=== PATIENT | female | born 1965 | race Caucasian/White ===

== ENCOUNTER 2022-01-23 14:17 | Outpatient (REF) | payer OTHER, SELFPAY | END 2022-01-23 14:18 | disposition home or self-care (01) | LOC: HO.MDS 14:17 | PROVIDERS: Visit Provider Psychiatry & Neurology Neurology | DX: G37.9 Demyelinating disease of central nervous system, unspecified (principal); Q79.60 Ehlers-Danlos syndrome, unspecified | CPT/HCPCS: 96365; J2930 ==

== ENCOUNTER 2022-01-24 14:16 | Outpatient (REF) | payer OTHER, SELFPAY | END 2022-01-24 14:17 | disposition home or self-care (01) | LOC: HO.MDS 14:16 | PROVIDERS: Visit Provider Psychiatry & Neurology Neurology | DX: G37.9 Demyelinating disease of central nervous system, unspecified (principal); G35 Multiple sclerosis; Q79.60 Ehlers-Danlos syndrome, unspecified | CPT/HCPCS: 96365; J2930 ==

== ENCOUNTER 2022-01-25 14:19 | Outpatient (REF) | payer OTHER, SELFPAY ==
[2022-01-25 16:06] LABS: Baso%MD 0.1 %; Hematocrit 38.8 % (37.0-47.0); Hemoglobin 12.7 g/dl (12.0-16.0); IG%MD 0.5 %; Lymph%MD 16.3 %; Mean Corpuscular HGB Conc 32.7 g/dl (31.0-35.0); Mean Corpuscular Hemoglobin 26.8 pg (27.0-33.0); Mean Platelet Volume 9.3 fL (9.4-12.3); Mono%MD 4.8 %; Neut%MD 78.3 %; Platelet Count 376 X10*3/uL (160-400); Red Blood Count 4.73 X10*6/uL (4.20-5.50); Red Cell Distribution Width 13.5 % (11.0-16.0); White Blood Count 18.5 X10*3/uL (4.8-10.8)
[2022-01-25 16:35] LABS: Alanine Aminotransferase 21 U/L (0-31); Albumin Level 4.4 g/dL (3.5-5.0); Alkaline Phosphatase 65 U/L (39-117); Anion Gap 14 (12-20); Aspartate Amino Transferase 36 U/L (5-31); Bilirubin Direct 0.3 mg/dL (0.0-0.5); Bilirubin Total 0.7 mg/dL (0.0-1.0); Blood Urea Nitrogen 16 mg/dL (9-16); Calcium 9.7 mg/dL (8.4-10.2); Carbon Dioxide 28 mmol/L (22-29); Chloride 102 mmol/L (96-108); Estimated Glomerular Filt Rate > 60; Glucose Random 104 mg/dL (60-115); Potassium 4.2 mmol/L (3.3-5.1); Rheumatoid Factor < 15.0 IU/mL (<15.0); Sodium 140 mmol/L (135-145); Total Protein 7.5 g/dL (6.5-8.0)
[2022-01-25 16:54] LABS: Erythrocyte Sedimentation Rate 12 MM/HR (0-20)
[2022-01-25 17:06] LABS: Syphilis Screen Nonreactive (Nonreactive)
[2022-01-25 19:01] LABS: Lymphocytes Absolute Manual 1.5 X10*3/uL (1.2-4.9); Lymphocytes Percent Manual 8 % (20-40); Monocytes Absolute Manual 1.3 X10*3/uL (0.1-1.2); Monocytes Percent Manual 7 % (2-11); Neutrophils Percent Manual 85 % (45-73); RBC Morphology NOTED
[2022-01-25 19:02] LABS: Acanthocytes 2+ (3-5) /OIF; Platelet Estimate NORMAL (NORMAL); Platelet Morphology Comment NORMAL
[2022-01-25 19:03] LABS: Neutrophils Absolute Manual 15.7 X10*3/uL (2.0-8.3)
[2022-01-26 22:12] LABS: Lyme Abs Screen <0.90 index
[2022-01-27 08:22] LABS: Myeloperoxidase Antibody <1.0 AI; Proteinase 3 PR3 Antibodies <1.0 AI
[2022-01-29 08:22] LABS: Anti Nuclear Antibody Screen NEGATIVE (NEGATIVE)
== END 2022-01-25 14:20 | disposition home or self-care (01) ==
LOC: HO.MDS 14:19
PROVIDERS: PCP Internal Medicine Hematology & Oncology; Visit Provider Psychiatry & Neurology Neurology
DX: G37.9 Demyelinating disease of central nervous system, unspecified (principal); Q79.60 Ehlers-Danlos syndrome, unspecified
CPT/HCPCS: 36415; 80048; 80076; 85007; 85027; 85652; 86021; 86038; 86039; 86431; 86617; 86618; 86780; 96365; J2930

== ENCOUNTER 2022-02-01 15:48 | Outpatient (REF) | payer OTHER, SELFPAY ==
--- NOTE | ~2022-02-01 | MR_ITS ---
EXAMINATION: MR CERVICAL AND THORACIC SPINE WITHOUT AND WITH CONTRAST CLINICAL INFORMATION: MS changes in the brain. COMPARISON: None TECHNIQUE: Multiplanar multisequence MRI of the cervical and thoracic spine was performed without and with contrast. A total of 6.5 mL Gadavist was intravenously administered. FINDINGS: Cervical spine: The cervical vertebral bodies maintain normal heights and alignment. There is mild to moderate multilevel intervertebral disc height loss. No bone marrow edema is seen. The cervical cord signal appears normal. No abnormal enhancement is seen within the spinal canal. The imaged portions of the intracranial contents and extraspinal soft tissues appear normal. C2-C3: No spinal canal or neural foraminal stenosis. C3-C4: Mild disc bulging. No spinal canal or neural foraminal stenosis. C4-C5: Mild disc bulging with right uncovertebral hypertrophy. No spinal canal stenosis. Mild right neural foraminal stenosis. C5-C6: Disc osteophyte complex with uncovertebral hypertrophy resulting in severe bilateral neural foraminal stenosis and mild spinal canal stenosis. C6-C7: Disc bulging with uncovertebral hypertrophy resulting in mild bile canal stenosis and mild to moderate bilateral neural foraminal stenosis. C7-T1: Disc bulging with uncovertebral hypertrophy. Mild left neural foraminal stenosis. Thoracic spine: The thoracic vertebral bodies maintain normal heights and alignment. The disc heights are preserved. No bone marrow edema is seen. The thoracic cord signal appears normal. There is no focal disc herniation. The spinal canal and neural foramina are patent without significant narrowing. The extraspinal soft tissues appear normal. MR/MR cervical spine wo/w con IMPRESSION: CERVICAL SPINE: No cord signal abnormality or abnormal enhancement. No significant narrowing of the spinal canal. Neural foraminal stenosis appears severe bilaterally at C5-C6 and less advanced at other levels. THORACIC SPINE: No cord signal abnormality or abnormal enhancement. No spinal canal or neural foraminal stenosis.
== END 2022-02-01 15:49 | disposition home or self-care (01) ==
LOC: HO.MRI 15:48
PROVIDERS: Visit Provider Psychiatry & Neurology Neurology
DX: G37.9 Demyelinating disease of central nervous system, unspecified (principal); G82.20 Paraplegia, unspecified
CPT/HCPCS: 72156; 72157; A9585

== ENCOUNTER 2022-07-07 23:07 | Emergency (ER) | payer OTHER, SELFPAY ==
[2022-07-07 23:27] VITALS: BP 107/45; PULSE 73; RESP 16; TEMP 36.4; O2SAT 97; BMI 25.6
--- NOTE | 2022-07-08 00:04 | ECG_ITS ---
Test Reason : CHEST PAIN Blood Pressure : / mmHG Vent. Rate : 067 BPM Atrial Rate : 067 BPM P-R Int : 168 ms QRS Dur : 078 ms QT Int : 404 ms P-R-T Axes : 064 019 028 degrees QTc Int : 426 ms Normal sinus rhythm Normal ECG When compared with ECG of 18-JUL-2019 15:25, No significant change was found Referred By: Generic ED Physician Electronically Signed By:Macario Villasneor
[2022-07-08 00:19] LABS: Basophils Percent Auto 0.4 % (0-2); Eosinophils Absolute Auto 0.2 X10*3/uL (0.0-0.4); Eosinophils Percent Auto 1.9 % (0-4); Hematocrit 37.1 % (37.0-47.0); Hemoglobin 12.2 g/dl (12.0-16.0); Imm Gran Abs Auto 0.02 X10*3/uL (0.00-0.03); Imm Gran Pct Auto 0.3 % (0.0-0.4); Lymphocytes Absolute Auto 3.4 X10*3/uL (1.2-4.9); Lymphocytes Percent Auto 43.1 % (20-40); MANUAL DIFF FLAG NO; Mean Corpuscular HGB Conc 32.9 g/dl (31.0-35.0); Mean Corpuscular Hemoglobin 27.2 pg (27.0-33.0); Mean Corpuscular Volume 82.6 fL (80.0-98.0); Mean Platelet Volume 9.3 fL (9.4-12.3); Monocytes Absolute Auto 0.7 X10*3/uL (0.1-1.2); Monocytes Percent Auto 8.4 % (2-11); Neutrophils Absolute Auto 3.7 x10*3/uL (2.0-8.3); Neutrophils Percent Auto 45.9 % (45-73); Platelet Count 312 X10*3/uL (160-400); Red Blood Count 4.49 X10*6/uL (4.20-5.50); Red Cell Distribution Width 13.9 % (11.0-16.0)
--- NOTE | 2022-07-08 00:19 | ED_ITS ---
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 Oriented X3. No acute distress. Eyes: PERRLA, No Nystagmus HEENT: Pharynx normal. Oral Mucosa moist superficial tenderness left occipital area Neck: Normal inspection. Neck supple. CVS: Normal heart rate and rhythm. Pulses normal. Respiratory: No respiratory distress. Equal air entry bilateral, no wheezing/rales/rhonchi Abdomen: Soft and nontender. Bowel sounds are present, no mass palpable, no CVA tenderness Skin: Skin warm and dry. Normal skin color. Normal skin turgor. Extremities: No lower extremity edema. No calf tenderness Neuro: Oriented X 3. No motor deficit. No sensory deficit.No cerebellar signs , cranial nerves II-XII intact Medications Administered Discontinued Medications Generic Name Dose Route Start Last Admin Trade Name Dejuan PRN Reason Stop Dose Admin Ketorolac Tromethamine 30 mg 07/08/22 00:40 07/08/22 00:47 Ketorolac Tromethamine 30 Mg/Ml Vial IVPUSH 07/08/22 00:41 30 mg ONCE ONE Administration Medical Decision Making Medical Decision Making [facility] Narrative: Patient with questionable multiple sclerosis/demyelinating changes in the brain comes with left occipital pain clinically cervical neuralgia. No facial asymmetry labs are stable normal CRP and sed rate. Will discharge patient on tramadol has a follow-up plan to see neurologist Lab Data [facility] Lab Attestation statement: I reviewed the patient's lab results. 07/08/22 00:11 07/08/22 00:11 Labs: Lab Results 07/08/22 07/08/22 07/08/22 Range/Units 00:11 00:11 00:11 WBC 8.0 (4.8-10.8) X10*3/uL RBC 4.49 (4.20-5.50) X10*6/uL Hgb 12.2 (12.0-16.0) g/dl Hct 37.1 (37.0-47.0) % MCV 82.6 (80.0-98.0) fL MCH 27.2 (27.0-33.0) pg MCHC 32.9 (31.0-35.0) g/dl RDW 13.9 (11.0-16.0) % Plt Count 312 (160-400) X10*3/uL MPV 9.3 L (9.4-12.3) fL Immature Gran % (Auto) 0.3 (0.0-0.4) % Neut % (Auto) 45.9 (45-73) % Lymph % (Auto) 43.1 H (20-40) % [place] % (Auto) 8.4 (2-11) % Eos % (Auto) 1.9 (0-4) % Baso % (Auto) 0.4 (0-2) % Lymph # (Auto) 3.4 (1.2-4.9) X10*3/uL [place] # (Auto) 0.7 (0.1-1.2) X10*3/uL Eos # (Auto) 0.2 (0.0-0.4) X10*3/uL Baso # (Auto) 0.0 (0.0-0.2) X10*3/uL Abs Immat Gran (auto) 0.02 (0.00-0.03) X10*3/uL Absolute Neuts (auto) 3.7 (2.0-8.3) x10*3/uL Absolute Nucleated RBC 0.000 (0.0-0.012) X10*3/uL Nucleated RBC % (auto) 0.0 (0.0-0.2) /100WBC ESR 8 (0-20) MM/HR Sodium 140 (135-145) mmol/L Potassium 4.0 (3.3-5.1) mmol/L Chloride 106 (96-108) mmol/L Carbon Dioxide 27 (22-29) mmol/L Anion Gap 11 L (12-20) BUN 27 H (9-16) mg/dL Creatinine 0.89 (0.5-1.4) mg/dL Estim Creat Clear Calc 63.2 Estimated GFR > 60 Random Glucose 112 (60-115) mg/dL Calcium 9.0 D (8.4-10.2) mg/dL Total Bilirubin 0.2 (0.0-1.0) mg/dL AST 20 (5-31) U/L ALT 16 (0-31) U/L Alkaline Phosphatase 70 (39-117) U/L C-Reactive Protein 0.18 (< or = 0.50) mg/dL Total Protein 6.7 (6.5-8.0) g/dL Albumin 3.9 (3.5-5.0) g/dL Discharge Plan Discharge Clinical Impression: Cervical neuralgia Patient Disposition: Home, Self-Care Instructions: General Headache (ED) Additional Instructions: Take pain medicine as prescribed Follow-up with neurologist as scheduled Prescriptions: New tramadol 50 mg tablet 50 mg PO Q6H PRN (Reason: pain) Qty: 20 0RF Interventions: ED Discharge Assessment Last Done: 07/08/22 02:24
[2022-07-08 00:40] LABS: Alanine Aminotransferase 16 U/L (0-31); Albumin Level 3.9 g/dL (3.5-5.0); Alkaline Phosphatase 70 U/L (39-117); Anion Gap 11 (12-20); Aspartate Amino Transferase 20 U/L (5-31); Bilirubin Total 0.2 mg/dL (0.0-1.0); Blood Urea Nitrogen 27 mg/dL (9-16); Carbon Dioxide 27 mmol/L (22-29); Chloride 106 mmol/L (96-108); Creatinine Clr Calc Pharmacy 63.2; Estimated Glomerular Filt Rate > 60; Glucose Random 112 mg/dL (60-115); Sodium 140 mmol/L (135-145); Total Protein 6.7 g/dL (6.5-8.0)
[2022-07-08] MEDS: Ketorolac Tromethamine 30 MG/ML VIAL IVPUSH (00:47)
[2022-07-08 00:55] LABS: C Reactive Protein 0.18 mg/dL (< or = 0.50)
[2022-07-08 01:21] LABS: Erythrocyte Sedimentation Rate 8 MM/HR (0-20)
[2022-07-08 01:44] VITALS: BP 112/61; PULSE 67; RESP 15; O2SAT 98
--- NOTE | 2022-07-08 02:23 | PC.NURSE ---
Pt aox3 at discharge. IV line removed with no complication. Pt tolerated well. Discharge instructions reviewed with pt. Pt verbalizes understanding.
== END 2022-07-08 02:26 | disposition home or self-care (01) ==
PROVIDERS: Emergency Provider Internal Medicine
DX: M54.81 Occipital neuralgia (principal); Q79.60 Ehlers-Danlos syndrome, unspecified; G37.8 Other specified demyelinating diseases of central nervous system
CPT/HCPCS: 36415; 80053; 85025; 85652; 86140; 93005; 96374; 99284; J1885

== ENCOUNTER 2024-03-21 17:40 | Emergency (ER) | payer OTHER, SELFPAY ==
--- NOTE | ~2024-03-21 | CT_ITS ---
EXAMINATION: CT HEAD WITHOUT CONTRAST CLINICAL INFORMATION: Headache COMPARISON: None available. TECHNIQUE: Contiguous axial imaging was performed from the skull base to vertex without intravenous administration of contrast. This CT examination was performed using dose optimization techniques as appropriate, variously including the following: *Automated exposure control *Adjustment of mA and/or kV according to patient size (this includes techniques or standardized protocols for targeted exams where dose is matched to indication/reason for exam; i.e. extremities or head) *Use of iterative reconstruction technique DLP: 666 mGy-cm FINDINGS: There is no evidence of acute intracranial hemorrhage or edematous large vessel territorial infarction. No abnormal mass effect or midline shift is seen. Amin to white matter differentiation is well preserved. No abnormal extra-axial fluid collections are identified. The ventricles are normal in size. No abnormal attenuation in the brain parenchyma. The cerebellar tonsils are appropriately positioned. No acute calvarial fracture.. Paranasal sinuses and mastoid air cells are well-aerated. CT/CT head/brain wo IV con IMPRESSION: No CT evidence of acute intracranial hemorrhage or edematous territorial infarction.. Electronically signed by: Paulino Chau MD 03/21/2024 08:07 PM [facility]
--- NOTE | 2024-03-21 17:50 | ED.HA ---
HPI - Headache General Chief Complaint: Headache Stated Complaint: Headache Time Seen by Provider: 03/21/24 22:42 History of Present Illness ED Provider: Oumou ZUNIGA Narrative: The patient says that she has had intermittent headaches over the last 2 years following a head injury. She presents today with a headache that has been bothering her for 2 weeks. She does not seem to describe a thunderclap headache. It has been fairly persistent however. It is associated with some photophobia and some nausea. She says a few days ago she was trying to order coffee and she felt that she had difficulty vocalizing the word coffee for awhile but ultimately was able to say it properly. Yesterday she noticed some redness to the lateral aspect of her left eye. Today her daughter thought that the eye looked worse and she came to the emergency room. No fevers. 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 Social History Social History Alcohol intake: never Smoked in Last 30 Days: No Use of substances other than those prescribed or required for medical reasons: No Advance Directives: No Advance Directives Information Provided: No Do you have a plan to hurt others: No Plan Patient : No Physical Exam Vital Signs: Vital Signs: Last Vital Signs Temp 97.7 F 03/21/24 23:35 Pulse 72 03/21/24 23:35 Resp 16 03/21/24 23:35 BP 124/53 L 03/21/24 23:35 Pulse Ox 97 03/21/24 23:35 O2 Del Method Room Air 03/21/24 23:35 BMI result Body Mass Index 26.5 Const: Other: The patient is awake and alert, pleasant cooperative. She does not appear in distress. She looks as if she is an ordinarily healthy 58-year-old. She looks somewhat tired and has an obvious left eye lateral subconjunctival hemorrhage. HEENT: Other: Face is symmetrical. Mucous membranes moist. Pharynx is normal. No signs of trauma to the face. Eyes: Other: Pupils are round equal and reactive to light, extraocular movements intact, funduscopic exam was normal. There is a large subconjunctival hemorrhage to the lateral aspect of the left eye. Neck: Other: No adenopathy. Neck is entirely supple. She touches her chin to her chest very easily. Resp: Effort & Inspection: normal respiratory effort Auscultation: clear to auscultation bilaterally Cardio: Rate: regular rate Rhythm: regular rhythm Heart sounds: S1 normal heart sound present and S2 normal heart sound present Skin: Other: Skin is dry and unremarkable. The skin around the left eye is normal. Neuro: Other: The patient is awake and alert, pleasant cooperative. She has a benign and nontoxic demeanor. Cranial nerves 2-12 are intact. She moves her extremities normally and appropriately. Finger-nose is intact. She seems entirely neurologically intact and nontoxic. Extrem: Other: No peripheral edema. No calf swelling or tenderness. Course Course Course Narrative: This is an RME: Additional HPI, ROS, PE not included below will be deferred to primary provider. RME assessment and note performed by: Fanny Meneses PA-C This is a [id number], with a hx of memo danlos syndrome, who presents to the ER with complaints of ongoing headache x 2 weeks. Reports that she has had dizziness. Reports that 1 week ago she was trying to order a drink and could not say the word coffee and her tongue felt heavy. Reports today she noticed left eye pain and some blurred vision. EOM intact. +subconjunctival injection noted to her right eye Plan: Labs, CT head, further ER eval needed. Medications Administered Discontinued Medications Generic Name Dose Route Start Last Admin Trade Name Freq PRN Reason Stop Dose Admin Ketorolac Tromethamine 30 mg 03/21/24 22:56 03/21/24 23:25 Ketorolac Tromethamine 30 Mg/Ml Vial IM 03/21/24 22:57 30 mg ONCE ONE Administration Prochlorperazine Edisylate 10 mg 03/21/24 22:56 03/21/24 23:25 Prochlorperazine Edisylate 10 Mg/2 Ml Vial IM 03/21/24 22:57 10 mg ONCE ONE Administration Medical Decision Making Medical Decision Making [facility] Narrative: The patient is a 58-year-old woman who has had a headache for a couple of weeks. She also has a left-sided subconjunctival hemorrhage. I think the combination of the spontaneous subconjunctival hemorrhage that started yesterday together with a headache prompted her to come to the emergency room for evaluation. Labs and a head CT has been ordered at triage. These were unremarkable. Vital signs are unremarkable. I explained to the patient that I did not think that the subconjunctival hemorrhage was in any way related to her headache. She felt relieved. She did not want to stay in the emergency room for treatment for her headache. She was given an IM injection of ketorolac and prochlorperazine and discharged. She was advised to follow up with her PCP and with her eye doctor next week. Lab Data 03/21/24 19:40 03/21/24 19:40 Labs: Lab Results 03/21/24 Range/Units 19:40 WBC 8.6 (4.8-10.8) X10*3/uL RBC 4.75 (4.20-5.50) X10*6/uL Hgb 13.1 (12.0-16.0) g/dl Hct 39.7 (37.0-47.0) % MCV 83.6 (80.0-98.0) fL MCH 27.6 (27.0-33.0) pg MCHC 33.0 (31.0-35.0) g/dl RDW 13.9 (11.0-16.0) % Plt Count 322 (160-400) X10*3/uL MPV 9.2 L (9.4-12.3) fL Immature Gran % (Auto) 0.2 (0.0-0.4) % Neut % (Auto) 44.3 L (45-73) % Lymph % (Auto) 46.2 H (20-40) % [place] % (Auto) 7.1 (2-11) % Eos % (Auto) 1.9 (0-4) % Baso % (Auto) 0.3 (0-2) % Lymph # (Auto) 4.0 (1.2-4.9) X10*3/uL [place] # (Auto) 0.6 (0.1-1.2) X10*3/uL Eos # (Auto) 0.2 (0.0-0.4) X10*3/uL Baso # (Auto) 0.0 (0.0-0.2) X10*3/uL Abs Immat Gran (auto) 0.02 (0.00-0.03) X10*3/uL Absolute Neuts (auto) 3.8 (2.0-8.3) x10*3/uL Absolute Nucleated RBC 0.000 (0.0-0.012) X10*3/uL Nucleated RBC % (auto) 0.0 (0.0-0.2) /100WBC Sodium 140 (135-145) mmol/L Potassium 4.2 (3.3-5.1) mmol/L Chloride 108 (96-108) mmol/L Carbon Dioxide 23 (22-29) mmol/L Anion Gap 13 (12-20) BUN 23 H (9-16) mg/dL Creatinine 1.00 (0.5-1.4) mg/dL Estim Creat Clear Calc 55.8 Estimated GFR 57 Random Glucose 93 (60-115) mg/dL Calcium 9.2 (8.4-10.2) mg/dL Magnesium 2.1 (1.6-2.6) mg/dL Total Bilirubin 0.2 (0.0-1.0) mg/dL Direct Bilirubin < 0.2 (0.0-0.5) mg/dL AST 24 (5-31) U/L ALT 20 (0-31) U/L Alkaline Phosphatase 76 (39-117) U/L Total Protein 7.8 (6.5-8.0) g/dL Albumin 4.4 (3.5-5.0) g/dL Influenza Type A (PCR) NEGATIVE (Negative) Influenza Type B (PCR) NEGATIVE (Negative) RSV RNA Qual (PCR) NEGATIVE (Negative) SARS-CoV-2 RNA (RT-PCR) NEGATIVE (Negative) Discharge Plan Discharge Clinical Impression: Headache, Non-traumatic subconjunctival hemorrhage of left eye Patient Disposition: Home, Self-Care Additional Instructions: The redness of your left eye is what we call a ?subconjunctival hemorrhage. This is a condition which can happen spontaneously and which is not dangerous. This should get better on its own. I do not think this is related to your headache. Your headache may be a migraine headache. You were given medication to help with the headache. Please plan on resting and taking it easy over the next few days. Drink lot of fluids. Please make a follow up appointment with your regular medical doctor to discuss your headache. Please also see your eye doctor for a recheck of your eye this week as well. If at any point you feel significantly worse please return to the emergency department. Prescriptions: No Action tramadol 50 mg tablet 50 mg PO Q6H PRN (Reason: pain) Qty: 20 0RF Referrals: [facility] Cristin Cheung [Provider Group] (headache , left subconjunctival hemorrhage) Interventions: ED Discharge Assessment Last Done: 03/21/24 23:35 Discharge Date/Time: 03/21/24 23:36 Print Language: Sammarinese
[2024-03-21 17:51] VITALS: BP 117/72; PULSE 73; RESP 16; TEMP 36.6; O2SAT 96; BMI 26.5
[2024-03-21 20:01] LABS: MANUAL DIFF FLAG NO
[2024-03-21 20:03] LABS: Basophils Percent Auto 0.3 % (0-2); Eosinophils Absolute Auto 0.2 X10*3/uL (0.0-0.4); Eosinophils Percent Auto 1.9 % (0-4); Hematocrit 39.7 % (37.0-47.0); Hemoglobin 13.1 g/dl (12.0-16.0); Imm Gran Abs Auto 0.02 X10*3/uL (0.00-0.03); Imm Gran Pct Auto 0.2 % (0.0-0.4); Lymphocytes Percent Auto 46.2 % (20-40); Mean Corpuscular Hemoglobin 27.6 pg (27.0-33.0); Mean Corpuscular Volume 83.6 fL (80.0-98.0); Mean Platelet Volume 9.2 fL (9.4-12.3); Monocytes Absolute Auto 0.6 X10*3/uL (0.1-1.2); Monocytes Percent Auto 7.1 % (2-11); Neutrophils Absolute Auto 3.8 x10*3/uL (2.0-8.3); Neutrophils Percent Auto 44.3 % (45-73); Platelet Count 322 X10*3/uL (160-400); Red Blood Count 4.75 X10*6/uL (4.20-5.50); Red Cell Distribution Width 13.9 % (11.0-16.0); White Blood Count 8.6 X10*3/uL (4.8-10.8)
[2024-03-21 20:28] LABS: Alanine Aminotransferase 20 U/L (0-31); Albumin Level 4.4 g/dL (3.5-5.0); Alkaline Phosphatase 76 U/L (39-117); Anion Gap 13 (12-20); Aspartate Amino Transferase 24 U/L (5-31); Bilirubin Direct < 0.2 mg/dL (0.0-0.5); Bilirubin Total 0.2 mg/dL (0.0-1.0); Blood Urea Nitrogen 23 mg/dL (9-16); Calcium 9.2 mg/dL (8.4-10.2); Carbon Dioxide 23 mmol/L (22-29); Chloride 108 mmol/L (96-108); Creatinine Clr Calc Pharmacy 55.8; Estimated Glomerular Filt Rate 57; Glucose Random 93 mg/dL (60-115); Magnesium 2.1 mg/dL (1.6-2.6); Potassium 4.2 mmol/L (3.3-5.1); Sodium 140 mmol/L (135-145); Total Protein 7.8 g/dL (6.5-8.0)
[2024-03-21 20:44] LABS: Influenza A PCR NEGATIVE (Negative); Influenza B PCR NEGATIVE (Negative); Resp Syncy Virus RNA Qual PCR NEGATIVE (Negative); SARS COV2 PCR INHOUSE NEGATIVE (Negative)
[2024-03-21 21:20] VITALS: BP 124/53; PULSE 72; RESP 16; TEMP 36.5; O2SAT 97
[2024-03-21] MEDS: Ketorolac Tromethamine 30 MG/ML VIAL IM (23:25)
[2024-03-21] MEDS: Prochlorperazine Edisylate 10 MG/2 ML VIAL IM (23:25)
[2024-03-21 23:35] VITALS: BP 124/53; PULSE 72; RESP 16; TEMP 36.5; O2SAT 97
== END 2024-03-21 23:36 | disposition home or self-care (01) ==
PROVIDERS: Physician Assistant Medical; Emergency Provider Emergency Medicine
DX: H11.32 Conjunctival hemorrhage, left eye (principal); R51.9 Headache, unspecified; Z79.899 Other long term (current) drug therapy; Z03.818 Encounter for observation for suspected exposure to other biological agents ruled out
CPT/HCPCS: 0241U; 70450; 80048; 80076; 83735; 85025; 96372; 99284; J0737; J1885

== ENCOUNTER 2025-01-27 08:07 | Emergency (ER) | payer OTHER, SELFPAY ==
[2025-01-27] VITALS (10 sets, daily range): BP systolic 97–134; BP diastolic 59–76; PULSE 56–71; RESP 16–18; TEMP -17.7–37.1; O2SAT 96–99; BMI 24.9
--- NOTE | 2025-01-27 | ECG_ITS ---
Test Reason : dizziness Blood Pressure : */* mmHG Vent. Rate : 63 BPM Atrial Rate : 63 BPM P-R Int : 156 ms QRS Dur : 78 ms QT Int : 384 ms P-R-T Axes : 45 10 52 degrees QTcB Int : 392 ms Normal sinus rhythm Normal ECG When compared with ECG of 08-Jul-2022 00:19, No significant change was found Referred By: Generic ED Physician Electronically Signed By: ALYSHA ALEJANDRE MD
--- NOTE | ~2025-01-27 | XR_ITS ---
EXAMINATION: XR RIBS, RIGHT CLINICAL INFORMATION: non traumatic right rib pain COMPARISON: Previous chest x-ray June 2019 TECHNIQUE: 3 views of the right ribs were obtained. FINDINGS: Lungs are clear. No consolidation, pneumothorax, or pleural effusion. The cardiomediastinal silhouette and pulmonary vasculature are normal. Osseous structures are unremarkable. Ribs are intact. No fractures are identified. XR/XR ribs RT min 3V w CXR1V IMPRESSION: Unremarkable examination. Electronically signed by: Lucinda Felton MD 01/27/2025 09:03 AM EDT
--- NOTE | ~2025-01-27 | CT_ITS ---
EXAMINATION: CT HEAD WITHOUT CONTRAST CLINICAL INFORMATION: CHUA, blurry vision, lightheadedness, Memo-Danlos syndrome COMPARISON: None available. TECHNIQUE: Contiguous axial imaging was performed from the skull base to vertex without intravenous administration of contrast. This CT examination was performed using dose optimization techniques as appropriate, variously including the following: *Automated exposure control *Adjustment of mA and/or kV according to patient size (this includes techniques or standardized protocols for targeted exams where dose is matched to indication/reason for exam; i.e. extremities or head) *Use of iterative reconstruction technique FINDINGS: There is no acute ischemic change. Mild patchy periventricular white matter hypodensities are present. There is no intracranial hemorrhage. There is no mass-effect or midline shift. Basal cisterns and ventricles are within normal limits for age/cerebral volume. Orbits are symmetrical and unremarkable. Paranasal sinuses and mastoid air cells are pneumatized. There are no bony abnormalities. CT/CT head/brain wo IV con IMPRESSION: White matter hypodensities are a nonspecific finding but often related to small vessel angiopathy. Electronically signed by: Nishant Marmolejo MD 01/27/2025 11:18 AM EDT
[2025-01-27 08:44] LABS: Baso%MD 0.5 %; Eos%MD 1.5 %; Hematocrit 40.5 % (37.0-47.0); Hemoglobin 13.3 g/dl (12.0-16.0); IG%MD 0.2 %; Lymph%MD 38.2 %; Mean Corpuscular HGB Conc 32.8 g/dl (31.0-35.0); Mean Corpuscular Hemoglobin 27.4 pg (27.0-33.0); Mean Corpuscular Volume 83.3 fL (80.0-98.0); Mono%MD 6.8 %; NRBC Abs Auto 0.000 X10*3/uL (0.0-0.012); NRBC Pct Auto 0.0 /100WBC (0.0-0.2); Neut%MD 52.8 %; Platelet Count 375 X10*3/uL (160-400); Red Blood Count 4.86 X10*6/uL (4.20-5.50); White Blood Count 8.7 X10*3/uL (4.8-10.8)
[2025-01-27 08:59] LABS: Alanine Aminotransferase 21 U/L (0-31); Albumin Level 4.5 g/dL (3.5-5.0); Alkaline Phosphatase 83 U/L (39-117); Anion Gap 12 (12-20); Aspartate Amino Transferase 22 U/L (5-31); Blood Urea Nitrogen 19 mg/dL (9-16); Calcium 9.6 mg/dL (8.4-10.2); Carbon Dioxide 29 mmol/L (22-29); Chloride 106 mmol/L (96-108); Creatinine Clr Calc Pharmacy 70.6; Estimated Glomerular Filt Rate > 60; Potassium 4.7 mmol/L (3.3-5.1); Sodium 142 mmol/L (135-145); Total Protein 7.8 g/dL (6.5-8.0)
[2025-01-27 09:17] LABS: Atypical Lymph Absolute Manual 0.5 x10*3/uL; Atypical Lymphs Percent Manual 6 % (0-6); Eosinophils Absolute Manual 0.1 X10*3/uL (0.0-0.4); Eosinophils Percent Manual 1 % (0-4); Lymphocytes Absolute Manual 2.9 X10*3/uL (1.2-4.9); Lymphocytes Percent Manual 33 % (20-40); Monocytes Absolute Manual 0.4 X10*3/uL (0.1-1.2); Monocytes Percent Manual 5 % (2-11); Neutrophils Percent Manual 55 % (45-73)
[2025-01-27 09:18] LABS: RBC Morphology NORMAL
[2025-01-27 09:20] LABS: Band Neutrophils Percent 0 % (3-5); Neutrophils Absolute Manual 4.8 X10*3/uL (2.0-8.3)
--- NOTE | 2025-01-27 09:57 | PC.NURSE ---
59 F presents to ED with right sided abdominal pain and nausea since when she bent over side of tub to wash her dog, also c/o dizziness that has worsened in last few days, h/a more frequently. 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 A+Ox4, calm, cooperative. RR even and unlabored, denies CP or SOB.
[2025-01-27 10:45] LABS: Lipase 33 U/L (8-78); Magnesium 2.3 mg/dL (1.6-2.6)
[2025-01-27 10:53] LABS: Troponin-I High Sensitivity < 2.7 ng/L (<3.5-17.0)
--- NOTE | 2025-01-27 10:58 | ED_ITS ---
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 States pain is worse with palpation, movement, and deep breathing. Denies direct injury/fall or trauma. Also reports posterior headache, lightheadedness, nausea, and intermittent bilateral blurry vision x a few days. Headache not maximal at onset. Does report history of migraines however feels this headache is worse. Denies vision loss, fever/chills, vomiting, dysuria/hematuria, abdominal pain, chest pain, SOB Related Data Previous Rx's ?Medication ?Instructions ?Recorded tramadol 50 mg tablet 50 mg PO Q6H PRN pain #20 ta bs 07/08/22 lidocaine 5 % topical patch 1 patch topical DAILY PRN pain #30 01/27/25 (Lidoderm) ea Allergies Allergy/AdvReac Type Severity Reaction Status Date / Time No Known Allergies Allergy Verified 01/27/25 08:25 Review of Systems 2 Review of Systems: Yes all other systems are reviewed and are negative Constitutional: Constitutional: Reports as per HPI Neurologic: Denies Abnormal speech present [facility] Past Medical History Attestation statement: The following information was validated with the patient. 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 Social History Social History Alcohol intake: never Smoked in Last 30 Days: No Use of substances other than those prescribed or required for medical reasons: No Advance Directives: No Advance Directives Information Provided: No Patient : No Physical Exam ED Vital Signs: Vital Signs - 24 hr 01/27/25 08:22 01/27/25 09:54 01/27/25 11:38 Temperature 98.7 F Pulse Rate 71 70 61 Respiratory Rate 18 18 Blood Pressure 116/59 L 134/76 121/59 L Pulse Oximetry 96 98 Oxygen Delivery Method Room Air Room Air 01/27/25 11:39 01/27/25 11:39 01/27/25 11:44 Temperature Pulse Rate 61 69 61 Respiratory Rate 18 Blood Pressure 121/68 97/65 121/68 Pulse Oximetry 98 Oxygen Delivery Method Room Air 01/27/25 14:17 01/27/25 14:34 01/27/25 14:35 Temperature 97.9 F Pulse Rate 65 56 58 Respiratory Rate 16 Blood Pressure 112/69 118/66 123/73 Pulse Oximetry 99 Oxygen Delivery Method Room Air 01/27/25 14:36 Temperature Pulse Rate 59 Respiratory Rate Blood Pressure 125/71 Pulse Oximetry Oxygen Delivery Method BMI result Body Mass Index 24.9 Const General: cooperative, healthy appearing and no acute distress Orientation/consciousness: patient oriented x3 Limitations: no limitations HENMT Head: Yes normal to inspection and Yes atraumatic Ears: hearing grossly normal bilaterally General nose exam: Normal external nose present Face and sinus: Yes normal facial exam Eyes General: appearance normal, both eyes and all related structures Pupils: Equal, round and reactive pupils present EOM: EOMs intact bilaterally Direct Ophthalmoscopy: normal light reflex Neck Neck: Yes normal visual inspection and Yes no meningeal signs Chest Other: + right lower anterior lateral reproducible chest wall tenderness. No erythema/ecchymosis or rash. No flail chest. No crepitus Chest palpation & inspection: normal inspection of the chest Resp Effort & Inspection: normal respiratory effort and no respiratory distress Auscultation: clear to auscultation bilaterally Cardio Rate: regular rate Heart sounds: S1 normal heart sound present and S2 normal heart sound present GI Inspection: Yes normal to inspection Palpation (GI): Soft to palpation, nontender, no guarding and not rigid General: Yes no CVA tenderness Back/Spine/Pelvis Back: no CVA tenderness Skin Rashes: no rashes Wounds: no wounds Neuro General: patient oriented x3, gait normal, tone normal, moves all extremities, no meningeal signs, no focal motor deficits and CN's II-XI intact bilaterally Cranial nerves: Yes CN's II-XII intact bilaterally, Yes Equal, round and reactive pupils present and Yes Bilaterally intact EOM present Cognition (Neuro): normal cognition Speech: No Abnormal speech present Gait exam (Neuro): Normal gait present Motor exam (neuro): 5/5 motor strength present throughout and Pronator motor function not present Coordination: [id number] test normal Extrem General: Yes normal to inspection Course Course Course Narrative: -1145--labs reassuring. Troponin negative. XR ribs RT min 3V w CXR1V IMPRESSION: Unremarkable examination. CT head/brain wo IV con IMPRESSION: White matter hypodensities are a nonspecific finding but often related to small vessel angiopathy. -viral testing negative. Orthostatic vital signs positive, and patient is symptomatic upon standing. We will give 2 L IVF and repeat. -1442--repeat orthostatics after IVF negative/unremarkable. Patient feels safe for discharge home at this time - reports sx improvement. Results discussed including needed close follow up with PCP. Results discussed with patient including worrisome signs and symptoms and strict return precautions, and when to return to the emergency department. They verbalized understanding and feel safe for discharge at this time. Medications Administered Discontinued Medications Generic Name Dose Route Start Last Admin Trade Name Freq PRN Reason Stop Dose Admin Sodium Chloride 1,000 mls @ 999 mls/hr 01/27/25 10:30 01/27/25 13:00 Ns IV 01/27/25 11:30 Infused .Q1H1M TEENA Infusion Acetaminophen 1,000 mg in 100 mls @ 400 mls/hr 01/27/25 10:25 01/27/25 11:40 Ofirmev IV 01/27/25 10:39 Infused ONCE ONE Infusion Sodium Chloride 1,000 mls @ 999 mls/hr 01/27/25 13:00 01/27/25 14:46 Ns IV 01/27/25 14:00 0 mls/hr .Q1H1M TEENA Titration Medical Decision Making Medical Decision Making [facility] Narrative: 59-year-old female with a past medical history of Memo-Danlos syndrome presenting to the ED complaining of right-sided rib pain since last s/p giving her dog a bath and leaning over tub awkwardly/picking dog up. Also reports posterior headache, lightheadedness, nausea, and intermittent bilateral blurry vision x a few days. On exam vital signs stable, NAD, nontoxic appearing, physical exam as noted above. Reproducible right chest wall tenderness. Abdomen is soft and nontender. No focal neuro deficits. Concern for rib contusion vs fracture vs costochondritis. Lower suspicion for intra- abdominal bleeding/hematoma or ACS/PE. Concern for migraine headache. Lower suspicion for CVA/TIA or SAH/ICH at this time. Unlikely cholecystitis/lithiasis or pancreatitis Plan: EKG, labs, CXR, head CT, symptomatic remedies, re-evaluate Please refer to course for remaining clinical decision making, interpretation of labs/imaging results, and discussions with consultants and/or family members. Differential Diagnosis Differential Diagnoses: The differential diagnosis associated with the presentation includes As above Admission/Observation Consideration of admission/observation: Escalation of care including admission/observation considered Lab Data MDM Lab Attestation statement: I reviewed the patient's lab results. 01/27/25 08:36 01/27/25 08:36 Labs: Lab Results 01/27/25 01/27/25 Range/Units 08:36 11:26 WBC 8.7 (4.8-10.8) X10*3/uL RBC 4.86 (4.20-5.50) X10*6/uL Hgb 13.3 (12.0-16.0) g/dl Hct 40.5 (37.0-47.0) % MCV 83.3 (80.0-98.0) fL MCH 27.4 (27.0-33.0) pg MCHC 32.8 (31.0-35.0) g/dl RDW 14.2 (11.0-16.0) % Plt Count 375 (160-400) X10*3/uL MPV 8.9 L (9.4-12.3) fL Absolute Nucleated RBC 0.000 (0.0-0.012) X10*3/uL Nucleated RBC % (auto) 0.0 (0.0-0.2) /100WBC Neutrophils % (Manual) 55 (45-73) % Band Neutrophils % 0 L (3-5) % Lymphocytes % (Manual) 33 (20-40) % Atypical Lymphs % (Man) 6 (0-6) % Monocytes % (Manual) 5 (2-11) % Eosinophils % (Manual) 1 (0-4) % Abs Neuts (Manual) 4.8 (2.0-8.3) X10*3/uL Lymphocytes # (Manual) 2.9 (1.2-4.9) X10*3/uL Atyp Lymphs # (Manual) 0.5 x10*3/uL Monocytes # (Manual) 0.4 (0.1-1.2) X10*3/uL Eosinophils # (Manual) 0.1 (0.0-0.4) X10*3/uL Platelet Estimate NORMAL (NORMAL) Plt Morphology Comment NORMAL RBC Morphology NORMAL Sodium 142 (135-145) mmol/L Potassium 4.7 (3.3-5.1) mmol/L Chloride 106 (96-108) mmol/L Carbon Dioxide 29 (22-29) mmol/L Anion Gap 12 (12-20) BUN 19 H (9-16) mg/dL Creatinine 0.82 (0.5-1.4) mg/dL Estim Creat Clear Calc 70.6 Estimated GFR > 60 Random Glucose 92 (60-115) mg/dL Calcium 9.6 (8.4-10.2) mg/dL Magnesium 2.3 (1.6-2.6) mg/dL Total Bilirubin 0.4 (0.0-1.0) mg/dL AST 22 (5-31) U/L ALT 21 (0-31) U/L Alkaline Phosphatase 83 (39-117) U/L Troponin I High Sens < 2.7 (<3.5-17.0) ng/L Total Protein 7.8 (6.5-8.0) g/dL Albumin 4.5 (3.5-5.0) g/dL Lipase 33 (8-78) U/L Influenza Type A (PCR) NEGATIVE (Negative) Influenza Type B (PCR) NEGATIVE (Negative) RSV RNA Qual (PCR) NEGATIVE (Negative) SARS-CoV-2 RNA (RT-PCR) NEGATIVE (Negative) Independent Interpretation I performed an independent interpretation of an: EKG (My interpretation: EKG NSR rate of 63. OH interval 156. QTC 392. No significant change when compared to prior ), Plain X-Ray and CT Scan Radiology Impression Discussion of test interpretation with radiology: I have reviewed the radiologist's reading. External Record Review External record reviewed: Inpatient record, Office record, Outpatient record, Prior outpatient labs, Prior outpatient radiology, Primary care record and Outside ED record Tests considered The following testing was considered but not selected: As above Prescription Management I considered prescription management with: Pain Medication Chronic Conditions Patient?s care impacted by: Other (Memo-Danlos) Social Determinants Patient?s care significantly limited by Social Determinants of Health including: Problems related to primary support group and Other Social Determinant of Health Discharge Plan Discharge Clinical Impression: Costochondritis, Orthostasis Patient Disposition: Home, Self-Care Additional Instructions: Your workup is reassuring today. Your x-ray was unremarkable. Your CAT scan does not show any new findings Please have close follow up with her primary care doctor Take Tylenol and ibuprofen at home as needed for pain. Lidoderm patches are numbing patches, apply to painful area Your blood pressure did drop with position changes initially. Make sure you are increasing your fluid intake at home. If you develop constant worsening headache, lightheadedness/dizziness, chest pain/shortness of breath, unremitting pain return to the ED Prescriptions: New lidocaine [Lidoderm] 5 % adhesive patch,medicated 1 patch topical DAILY MDD remove after 12 hours PRN (Reason: pain) Qty: 30 0RF Rx Instructions: leave on most painful area for up to 12 hrs No Action tramadol 50 mg tablet 50 mg PO Q6H PRN (Reason: pain) Qty: 20 0RF [facility] - 3 days Print Language: Belarusian
--- OUTSIDE RECORDS SUMMARY | 2025-01-27 11:54 | XMS_ITS | Encounter Summary ---
Author Organization [facility] Address [address] [place] [address] [place] [address] Phone Care Team Providers Care Head Shipper Name Role Phone Rajat Conley MD Primary Care Provider [phone] Manny Doty MD Primary Care Provider [phone] Encounter Details Date Type Department Care Team (Late st Contact Info) Description 09/03/2017 Procedure Pass [facility] [address] [place] [address] Social History Tobacco Use Types Packs/Day Years Used Date Smoking Tobacco: Never Assessed Comments Unknown Sex and Gender Information Value Date Recorded Sex Assigned at Not on file Legal Sex Female 5:13 PM EST Gender Identity Not on file Sexual Orientation Not on file documented as of this encounter Plan of Treatment Not on file documented as of this encounter Visit Diagnoses Not on filedocumented in this encounter Care Teams Head Shipper Relationship Specialty Start Date End Date Rajat Conley MD 175 [facility] [address] [place] [address] PCP - General Gastroenterology 07/23/17 09/02/24 Manny Doty MD [address] [place] [address] PCP - General Internal Medicine 09/03/24 documented as of this encounter Additional Source Comments The information contained in this document represents components of the legal health record. It is not the complete legal health record.[facility]
--- OUTSIDE RECORDS SUMMARY | 2025-01-27 11:54 | XMS_ITS | Encounter Summary ---
Author Organization [facility] Address [address] [place] [address] [place] [phone] Phone Care Team Providers Care Picture Engraver Name Role Phone Rajat Conley MD Primary Care Provider [phone] Manny Doty MD Primary Care Provider [phone] Encounter Details Date Type Department Care Team (Late st Contact Info) Description 09/03/2017 Procedure Pass [facility] [address] [place] [address] Social History Tobacco Use Types Packs/Day Years [...] on filedocumented in this encounter Care Teams Picture Engraver Relationship Specialty Start Date End Date Rajat Conley MD 175 [facility] [address] [place] [address] PCP - General Gastroenterology 07/23/17 09/02/24 Manny Doty MD [address] [place] [address] PCP - General Internal Medicine 09/03/24 documented as of this encounter Additional Source Comments The information contained in this document represents components of the legal health record. It is not the complete legal health record.[facility]
--- OUTSIDE RECORDS SUMMARY | 2025-01-27 11:54 | XMS_ITS | Clinical Summary ---
Author Organization [facility] [address] [facility] Address [address] [place] [phone] Phone Care Team Providers Care Marble Machine Tender Name Role Phone Manny Doty MD Primary Care Provider Allergies No known active allergies Medications butalbital-acet aminophen-caffe ine 50-300-40 mg capsule Take 1 capsule by mouth. 3 Active etodolac (LODINE) 400 mg tablet Take 1 tablet (400 mg total) by mouth. Active diaper,brief,ad ult,disposable misc 1 Package by Does not apply route 3 times daily. Use #3 times daily Indefinite Use Dx; Incontinence [R32] Multiple sclerosis (HCC) [G35] Peripheral neuropathy [G62.9] 4 Active cyclobenzaprine (FLEXERIL) 5 mg tablet Take 2 tablets (10 mg total) by mouth 3 (three) times a day if needed for muscle spasms. 30 tablet 5 Active fluticasone HFA (FLOVENT HFA) 110 mcg/actuation inhaler Inhale 1 puff by mouth 2 (two) times a day. 1 each 5 Active gabapentin (NEURONTIN) 100 mg capsule Take 1 capsule (100 mg total) by mouth 1 (one) time each day. 90 each 5 Active ferrous sulfate 325 mg (65 mg elemental iron) tablet TAKE 1 TABLET BY MOUTH 1 TIME EACH DAY. 90 tablet 1 5 Active Vitamin D3 25 mcg (1,000 unit) capsule TAKE 1 CAPSULE (1,000 UNITS TOTAL) BY MOUTH ONCE A DAY 90 capsule 1 5 Active aspirin 81 mg EC tablet TAKE 1 TABLET BY MOUTH 1 TIME EACH DAY. 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 Conley as a primary care physician since age 20. We will try to get records from his office. If she did not have a image of aorta, I will arrange either CTA or MRA for complete imaging of aorta. She told me she had a myocardial infarction. Hopeful we can get more information on that diagnosis. Is not rare for patient with Memo-Danlos syndrome to have a spontaneous coronary dissection. Immunizations Immunization Administration Dates Next Due Influenza trivalent, 0.5mL, preservative free (Fluarix; FluLaval; Fluzone) ages 6mo and older (Afluria) 3 years and older 01/18/2024 PPD Test 04/07/2013 Pneumococcal polysaccharide 23 valent (Pneumovax 23) 2yo and older 07/25/2021 Tdap Tetanus diptheria acell ular pertussis (Boostrix; Adacel) 7yo and older 07/25/2021 Surgical History Surgery Date Site/Laterality Comments OTHER SURGICAL HISTORY PROCEDURE: ARTHROSCOPY PROCEDURE NEC; COMMENT: no other information Medical History Medical History Date Comments Anxiety 06/12/2013 DX:Anxiety Asthma DX:Asthma 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 DX:Bicornate ut erus Breast calcifications 03/27/2016 DX:Breast calcifications Depression 06/12/2013 DX:Depression Memo-Danlos syndrome 05/02/2006 DX:Memo -Danlos syndrome Lung mass 07/24/2017 DX:Lung mass Migraine headache 08/17/2016 DX:Migraine he adache Multiple sclerosis 08/08/2017 DX:Multiple s clerosis (HCC) Old ID (myocardial infarction) 10/05/2011 D X:Old ID (myocardial infarction) Peripheral neuropathy 04/03/2013 DX:Periphe ral neuropathy Varicose veins 08/31/2015 DX:Varicose vein s Vitamin D deficiency 04/10/2017 DX:Vitamin D deficiency Family History Medical History Relation Name Comments Breast cancer Sister had tumors , pt unsure if she had cancer Cancer of Small Bowel Neg Hx Colon cancer Neg Hx Kidney cancer Neg Hx Ovarian cancer Neg Hx Pancreatic cancer Neg Hx Relation Name Status Comments Mother Sister Social History Tobacco Use Types Packs/Day Years Used Date Smoking Tobacco: Never Smokeless Tobacco: Never Tobacco Cessation:Counseling Given: Not Answered Alcohol Use Standard Drinks/Week Comments Never 0 (1 standard drink = 0.6 oz pur e alcohol) Comments No Sex and Gender Information Value Date Recorded Sex Assigned at Not on file Legal Sex Female 12:17 AM EST Gender Identity Not on file Sexual Orientation Not on file Obstetrics History Last Filed Vital Signs Vital Sign Reading Time Taken Comments Blood Pressure 97/69 09/02/2024 10:02 AM EDT Pulse 72 09/02/2024 10:02 AM EDT Temperature - - Respiratory Rate 16 09/02/2024 10:02 AM EDT Oxygen Saturation - - Inhaled Oxygen Concentration - - Weight 50.3 kg (111 lb) 11/02/2022 8:06 AM EDT Height 157.5 cm (5' 2 ) 01/18/2024 10:05 AM EDT Body Mass Index 20.3 07/25/2021 1:14 PM EDT Plan of Treatment Upcoming Encounters Date Type Department Care Team (Late st Contact Info) Description 02/25/2025 1:30 PM EST Office Visit Orthopedic Surgery - [place] [address] [address] Imtiaz Lopez, DPM [address] [address] Health Maintenance Due Date Last Done Comments Hepatitis B Vaccines (1 of 3 - 19+ 3-dose series) 07/30/1986 Zoster Vaccines (1 of 2) 07/30/2017 HIV Screening 04/01/2022 Social Influencers of Health Screening 04/01/2022 Pneumococcal Vaccine: 50+ Years (2 of 2 - PCV) 07/25/2022 07/25/2021 Depression Screening 04/23/2024 COVID-19 Vaccine (1 - 2023-2 5 season) 2024 Influenza Vaccine (#1) 2024 01/18/2024 Breast Cancer Screening 06/08/2025 06/08/2023 Cervical Cancer Screening: HPV 06/04/2028 06/04/2023 Cholesterol Screening (Lipid Panel) 01/17/2029 01/18/2024, 01/18/2024 Colorectal Cancer Screening: Colonoscopy 08/16/2030 08/16/2020 DTaP,Tdap,and Td Vaccines (3 - Td or Tdap) 02/20/2033 02/20/2023, 07/25/2021 RSV Immunization Adult Patients (1 - 1-dose 75+ series) 07/30/2042 Hepatitis C Screening Completed 07/25/2021 HIB Vaccines Aged Out No longer eligi ble based on patient's age to complete this topic HPV Vaccines Aged Out No longer eligi ble based on patient's age to complete this topic Hepatitis A Vaccines Aged Out No long er eligible based on patient's age to complete this topic IPV Vaccines Aged Out No longer eligi ble based on patient's age to complete this topic MMR Vaccines Aged Out No longer eligi ble based on patient's age to complete this topic Meningococcal ACWY Vaccine Aged Out N o longer eligible based on patient's age to complete this topic Meningococcal B Vaccine Aged Out No l onger eligible based on patient's age to complete this topic RSV Immunization Patients Under 20 months Aged Out No longer eligible b ased on patient's age to complete this topic Varicella Vaccines Aged Out No longer eligible based on patient's age to complete this topic Procedures Procedure Name Priority Date/Time Associated Diagnosis Comments LIPID PANEL Routine 01/18/2024 DIAGNOSTIC MAMMOGRAPHY INCLUDING CAD BILATERAL Routine 06/08/2023 9:26 AM EST Mastodynia HM HPV Routine 06/04/2023 HEPATITIS C SCREENING Routine 07/25/2021 COLONOSCOPY Routine 08/16/2020 from Last 3 Months or Most Recently Relevant to Health Maintenance Results * Lipid panel (01/18/2024) LDL/HDL Ratio 3 Triglycerides 86 mg/dL Cholesterol 236 mg/dL HDL 93 mg/dL LDL Cholesterol 126 mg/dL Blood Venous blood specimen / Unknown [facility] Provider MD LAB BLOOD ORDERABLES Annia l Result * DIAGNOSTIC MAMMOGRAPHY INCLUDING CAD BILATERAL (06/08/2023 9:26 AM EST) Anatomical Region Laterality Modality Mammography 06/04/2023 10:5 9 AM EST Narrative 06/08/2023 9:32 AM EST This is a summary report. The complete report is available in the patient's medical record. If you cannot access the medical record, please contact the sending organization for a detailed fax or copy. History: Bilateral breast pain. Full field digital diagnostic tomosynthesis mammography, reviewed with CAD and compared to previous. The breast tissue is heterogeneously dense, limiting sensitivity. No suspicious mass, architectural distortion or suspicious calcifications are identified. IMPRESSION: : Dense breast tissue, limiting the sensitivity of mammography. No mammographic evidence of malignancy. BIRADS 1-Negative; N. 5 year breast cancer risk assessment N/A Lifetime breast cancer risk assessment N/A Breast cancer risk category Breast cancer risk not assessed Procedure Note Justino Bryant MD - 12/10/2023 This is a summary report. The complete report is available in thepatient's medical record. If you cannot access the medical record, pleasecontact the sending organization for a detailed fax or copy. History: Bilateral breast pain. Full field digital diagnostic tomosynthesis mammography, reviewed with CADsteffanie compared to previous. The breast tissue is heterogeneously dense,limiting sensitivity. No suspicious mass, architectural distortion orsuspicious calcifications are identified. IMPRESSION: : Dense breast tissue, limiting the sensitivity of mammography. Nomammographic evidence of malignancy. BIRADS 1-Negative; N. 5 year breast cancer risk assessment N/A Lifetime breast cancer risk assessment N/A Breast cancer risk category Breast cancer risk not assessed Alisson Stafford CNM IMG BI PROCEDURES Final Res ult * Cervical Cancer Screening: HPV (06/04/2023) Pathologist [facility] Cervical Cancer Screening: HPV abstracted, negative Result [facility] Historical Provider HEALTH MAINTENANCE Final Result * Hepatitis C Screening (07/25/2021) [facility] Hepatitis C Screening negative Result [facility] Historical Provider HEALTH MAINTENANCE Final Result * Colonoscopy (08/16/2020) [facility] Colonoscopy completed Anatomical Region Laterality Modality Other Historical Provider HEALTH MAINTENANCE Final Result from Last 3 Months or Most Recently Relevant to Health Maintenance Insurance * Guarantor: Caron Brady Account Type Relation to Patient Date of Phone Billing Address Personal/Family Self 1965 [phone] (Work) [address] [place] [phone] [place] [address] [employer]ALTH PLAN Care Teams Marble Machine Tender Relationship Specialty Start Date End Date Manny Doty MD [address] [place], [place] [address] [address] PCP - General Internal Medicine 1/12/22
--- OUTSIDE RECORDS SUMMARY | 2025-01-27 11:54 | XMS_ITS ---
Author Name [facility] Organization Unknown Care Team Organization Name Specialty Phone Email Start Date End Da te [facility] Manny Doty Primary Care 12/28/20222023 [facility] Nica Lawton Primary Care 07/25/2022 12/10/19 [facility] Sherice Weiss Primary Care 02/28/2022 12/10/2023
--- OUTSIDE RECORDS SUMMARY | 2025-01-27 11:54 | XMS_ITS | Encounter Summary ---
Author Organization [facility] Address [address] [place] [id number] Phone Care Team Providers Care Salvage Inspector Name Role Phone Rajat Conley MD Primary Care Provider [phone] Manny Doty MD Primary Care Provider Reason for Referral * Consultation (Within 2 weeks) - Closed Specialty Diagnoses / Procedures Referred By Contac t Referred To Contact Pulmonary Disease Diagnoses SOB (shortness of breath) on exertion Sophie Daniel PA Phone: tel: fax: Referral ID Status Reason Start Date Expiration Date Visits Re quested Visits Authorized [id number] Closed 07/25/2017 07/25/2018 6 6 Encounter Details Date Type Department Care Team (Late st Contact Info) Description 07/25/2017 Transcribe Orders [facility] [address], [address] [place] [address] Sophie Daniel PA [address] [place] [address] SOB (shortness of breath) on exertion (Primary Dx) Social History Tobacco Use Types Packs/Day Years Used Date Smoking Tobacco: Never Assessed Comments Unknown Sex and Gender Information Value Date Recorded Sex Assigned at Not on file Legal Sex Female 5:13 PM EST Gender Identity Not on file Sexual Orientation Not on file documented as of this encounter Plan of Treatment Scheduled Referrals Name Type Priority Associated Diagnoses Order Schedule Ambulatory referral to [facility] Outpatient Referral Routine SOB (shortness of breath) on exertion Ordered: 07/25/2017 documented as of this encounter Visit Diagnoses Diagnosis SOB (shortness of breath) on exertion- Primary Shortness of breath documented in this encounter Care Teams Salvage Inspector Relationship Specialty Start Date End Date Rajat Conley MD [address] [id number] PCP - General Gastroenterology 07/23/17 09/02/24 Manny Doty MD [address] [place] [address] PCP - General Internal Medicine 09/03/24 documented as of this encounter Additional Source Comments The information contained in this document represents components of the legal health record. It is not the complete legal health record.[facility]
--- OUTSIDE RECORDS SUMMARY | 2025-01-27 11:54 | XMS_ITS | Clinical Summary ---
Author Organization [facility] Address [address] [place] [address] [place] [id number] Phone Care Team Providers Care Platform Power Technician Name Role Phone Manny Doty MD Primary Care Provider [phone] Allergies No known active allergies Medications cholecalciferol, vitamin D3, (VITAMIN D3 ORAL) Active multivitamin-min erals-lutein (CENTRUM SILVER) Tab Take 1 tablet by mouth daily. 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 Not on corey e 09/03/2022 Are you concerned about learning? Not on file 09/03/2022 No 09/03/2022 No 09/03/2022 Digital Access Answer Date Recorded No 09/17/2022 No 09/17/2022 No 09/17/2022 Reliable internet access at home? Not on file 09/17/2022 Device with a working camera? Not on file Comments Unknown Sex and Gender Information Value Date Recorded Sex Assigned at Not on file Legal Sex Female 5:13 PM EST Gender Identity Not on file Sexual Orientation Not on file Last Filed Vital Signs Vital Sign Reading Time Taken Comments Blood Pressure 116/74 09/25/2023 9:01 AM EDT Pulse 62 09/25/2023 9:01 AM EDT Temperature 35.7 C (96.3 F) 08/27/2017 1:33 PM EDT Respiratory Rate - - Oxygen Saturation 100% 07/01/2018 1:38 PM EDT Inhaled Oxygen Concentration - - Weight 66.3 kg (146 lb 3.2 oz) 09/25/2023 9:01 A M EDT Height 154.9 cm (5' 1 ) 09/25/2023 9:01 AM EDT Body Mass Index 27.62 09/25/2023 9:01 AM EDT Plan of Treatment Health Maintenance Due Date Last Done Comments HEPATITIS C SCREENING 07/30/1985 HIV ONE-TIME SCREENING (18-6 5 YEARS) 07/30/1985 PAP SMEAR 07/30/1988 MAMMOGRAM 2007 COLOGUARD 07/30/2012 COLONOSCOPY 07/30/2012 COLORECTAL CANCER SCREENING 07/30/2012 FIT TEST 07/30/2012 FOBT 07/30/2012 SIGMOIDOSCOPY 07/30/2012 VIRTUAL COLONOSCOPY 07/30/2012 ZOSTER VACCINES (1 of 2) 07/30/2017 DEPRESSION SCREENING 08/27/2018 08/27/2017 SCREENING FOR DIABETES 09/03/2020 09/03/2017 PNEUMOCOCCAL VACCINES (50+ years) (2 of 2 - PCV) 07/25/2022 07/25/2021 LIPID PANEL 05/16/2024 05/16/2019 INFLUENZA VACCINE (#1) 2024 COVID-19 VACCINE (1 - 2024-2 6 season) 2024 Adult Td,Tdap Booster 02/20/2033 02/20/2023 , 07/25/2021 RSV VACCINE (1 - 1-dose 75+ series) 07/30/2042 SMOKING STATUS SCREENING (On ce After 26 Yrs) Completed 03/21/2022 HEPATITIS A VACCINES Aged Out No long er eligible based on patient's age to complete this topic HIB VACCINES Aged Out No longer eligi ble based on patient's age to complete this topic MENINGOCOCCAL VACCINES (ACWY) Aged Out No longer eligible based on patient's age to complete this topic MENINGOCOCCAL VACCINES (B) Aged Out N o longer eligible based on patient's age to complete this topic Medical Devices Not on file Insurance [employer] [place] [address] Care Teams Platform Power Technician Relationship Specialty Start Date End Date Manny Doty MD [address] [place] [phone] PCP - General Internal Medicine 09/03/24 Additional Source Comments The information contained in this document represents components of the legal health record. It is not the complete legal health record.[facility]
--- OUTSIDE RECORDS SUMMARY | 2025-01-27 11:54 | XMS_ITS | Clinical Summary ---
Author Organization [facility] Address [address] [place] [address] Care Team Providers Care Engineering Drawings Checker Name Role Phone Ref, Has No Pcp Or Primary Care Provider Unavail able Allergies No known active allergies Medications Vitamin D3 25 mcg (1,000 unit) capsule SMARTSI Capsule(s) By Mouth Daily 11/02/2022 Active aspirin 81 mg EC tablet SMARTSI Tablet(s) By Mouth Daily 02/04/2023 Active multivitamin-min erals-lutein tablet Take 1 tablet by mouth daily. Active Active Problems Problem Noted Date Diagnosed Date Facial aging 05/16/2023 Social History Tobacco Use Types Packs/Day Years Used Date Smoking Tobacco: Never Assessed Comments Unknown Sex and Gender Information Value Date Recorded Sex Assigned at Female 05/15/2023 10:29 AM EST Legal Sex Female 10:26 AM EST Gender Identity Not on file Sexual Orientation Not on file Plan of Treatment Health Maintenance Due Date Last Done Comments Cervical Cancer Screening 1967 Cologuard 1967 Colon Cancer Screening 1967 Colonoscopy 1967 FOBT / Fit Test 1967 HIV Screening 1967 HPV and Pap Smear 1967 Hepatitis C Screening 1967 Pap Smear 1967 Sigmoidoscopy 1967 Hepatitis B Vaccines (1 of 3 - 19+ 3-dose series) 07/30/1986 Mammogram 2007 Zoster Vaccines (1 of 2) 07/30/2017 Pneumococcal Vaccine: 50+ Ye ars (2 of 2 - PCV) 07/25/2022 07/25/2021 Alcohol/Substance Use Screening 04/23/2024 Depression Screening and Follow-Up 04/23/2024 Social Drivers of Health Annual Screening 04/23/2024 COVID-19 Vaccine ( - season) 2024 Influenza Vaccine (#1) 2024 DTaP,Tdap,and Td Vaccines (3 - Td or Tdap) 02/20/2033 02/20/2023, 07/25/2021 RSV Vaccine (60+ years old a nd patients) (1 - 1-dose 75+ series) 07/30/2042 Care Teams Engineering Drawings Checker Relationship Specialty Start Date End Date Ref, Has No Pcp Or DO NOT EDIT THIS RECORD VIA PROVIDER ON THE FLY PCP - General Public Relations Director 05/15/23
[2025-01-27 12:14] LABS: Resp Syncy Virus RNA Qual PCR NEGATIVE (Negative); SARS COV2 PCR INHOUSE NEGATIVE (Negative)
== END 2025-01-27 15:11 | disposition home or self-care (01) ==
PROVIDERS: Physician Assistant; Emergency Provider Emergency Medicine
DX: M94.0 Chondrocostal junction syndrome [Tietze] (principal); I95.1 Orthostatic hypotension; R51.9 Headache, unspecified; Q79.60 Ehlers-Danlos syndrome, unspecified
CPT/HCPCS: 36415; 70450; 71101; 80053; 83690; 83735; 84484; 85007; 85027; 87637; 93005; 96361; 96365; 99284; 99285; J0131

== ENCOUNTER → 2025-01-27 08:37 | Outpatient (BNV) | payer OTHER, SELFPAY | PROVIDERS: Emergency Provider Emergency Medicine; Visit Provider Internal Medicine Cardiovascular Disease | DX: R42 Dizziness and giddiness (principal) | CPT/HCPCS: 93010 ==

== ENCOUNTER → 2025-01-27 08:51 | Outpatient (BNV) | payer OTHER, SELFPAY | PROVIDERS: Visit Provider Radiology Diagnostic Radiology | DX: R51.9 Headache, unspecified (principal); H53.8 Other visual disturbances; R42 Dizziness and giddiness; R07.89 Other chest pain | CPT/HCPCS: 70450; 71101 ==

== ENCOUNTER 2025-04-21 09:05 | Emergency (ER) | payer OTHER, SELFPAY ==
--- NOTE | ~2025-04-21 | CT_ITS ---
EXAMINATION: CT HEAD WITHOUT IV CONTRAST HISTORY: posterior headache. TECHNIQUE: Unenhanced helical CT of the head was performed per standard departmental protocol. Coronal and sagittal reformats of the head were also evaluated. One or more of the following techniques was used for dose reduction: Automated exposure control, adjustment of the mA and/or kV according to patient size, use of iterative reconstruction technique. DLP: 67 mGy-cm COMPARISON: Comparison is made with the prior examination dated 01/27/2025. FINDINGS: BRAIN: The brain parenchyma is unremarkable. There is normal lim/white differentiation. The ventricular system is normal in size and configuration. There is no mass effect or midline shift. No intra- or extra-axial fluid collections are identified. SINUSES: The visualized paranasal sinuses are clear. The mastoid air cells and middle ear cavities are well pneumatized. ORBITS: The visualized orbits are unremarkable. BONES/SOFT TISSUES: The extracranial soft tissues are unremarkable. The calvarium is intact. No suspicious lytic or sclerotic lesions. CT/CT head/brain wo IV con IMPRESSION: No acute intracranial abnormality. Electronically signed by: Minh Ross MD 04/21/2025 10:15 AM [facility]
--- NOTE | ~2025-04-21 | CT_ITS ---
EXAMINATION: CT CERVICAL SPINE WITHOUT IV CONTRAST HISTORY: neck pain. TECHNIQUE: Helical CT of the cervical spine was performed per standard departmental protocol. Coronal and sagittal reformatted images were also evaluated. One or more of the following techniques was used for dose reduction: Automated exposure control, adjustment of the mA and/or kV according to patient size, use of iterative reconstruction technique. DLP: 248 mGy-cm COMPARISON: MRI of the cervical spine January [address] from earlier the same day FINDINGS: CERVICAL SPINE: Bone alignment is normal. No fracture or dislocation. There is degenerative spondylosis and degenerative disc disease from C4-5 to T1-2. There are mild degenerative changes at the C1 dens articulation. C2-3 there is no disc herniation protrusion or bulge. Spinal canal and neuroforamen are patent At C3-4 there is no disc herniation protrusion or bulge. Spinal canal and neuroforamen are patent At C4-5 there is mild right paracentral disc bulge. No disc herniation. Spinal canal and neuroforamen are patent. At C5-6 there is right disc bulge. There is no disc herniation. There is bilateral lateral recess and neuroforaminal narrowing from disc osteophyte complex and mild facet arthritis, right greater than left. At C6-7 there is mild diffuse disc bulge. No disc herniation. Spinal canal and neuroforamen are patent. At C7-T1 there is no disc herniation protrusion or bulge. Spinal canal and neuroforamen are patent BRAIN: The visualized portion of the brain is unremarkable. SINUSES: The visualized paranasal sinuses, mastoid air cells and middle ear cavities are unremarkable. LUNG APICES: The visualized lung apices are clear. SOFT TISSUES: The visualized paraspinal soft tissues are unremarkable. CT/CT cervical spine wo IV con IMPRESSION: No evidence of fracture or malalignment of the cervical spine. Mild degenerative changes greatest at C5-6. Electronically signed by: Lucinda Felton MD 04/21/2025 10:20 AM [facility]
[2025-04-21 09:25] VITALS: BP 129/58; PULSE 66; RESP 16; TEMP 37; O2SAT 98; BMI 28.0
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
[2025-04-21 11:45] VITALS: BP 118/54; PULSE 64; RESP 16; O2SAT 97
[2025-04-21 11:58] VITALS: BP 118/54; PULSE 64; RESP 16; TEMP 36.6; O2SAT 97
--- OUTSIDE RECORDS SUMMARY | 2025-04-21 15:15 | XMS_ITS | Clinical Summary ---
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 Encounters Date Type Department Care Team Description 03/18/2025 1:38 PM EST - 03/18/2025 3:[address] [facility] [address] [place] [address] Left against medical advice (Primary Dx) Discharge Disposition: Left Against Medical Advice from Last 3 Months Immunizations Immunization Administration Dates Next Due Influenza [...] sclerosis 08/08/2017 DX:Multiple s clerosis (HCC) Old CA (myocardial infarction) 10/05/2011 D X:Old CA (myocardial infarction) Peripheral neuropathy 04/03/2013 DX:Periphe ral [...] Sign Reading Time Taken Comments Blood Pressure 114/77 03/18/2025 12:34 PM EST Pulse 66 03/18/2025 12:34 PM EST Temperature 36.5 C (97.7 F) 03/18/2025 12:34 PM EST Respiratory Rate 16 03/18/2025 12:34 PM EST Oxygen Saturation 97% 03/18/2025 12:34 PM EST Inhaled Oxygen Concentration - - Weight 63.5 kg (140 lb) 03/18/2025 12:34 PM EST Height 157.5 cm (5' 2 ) 03/18/2025 12:34 PM EST Body Mass Index 25.61 03/18/2025 12:34 PM EST Plan of Treatment Health Maintenance Due Date Last Done Comments Drug Screen 1965 Non-Opioid Controlled Substance Agreement 1965 Hepatitis B Vaccines (1 of 3 - 19+ 3-dose series) 07/30/1986 RSV Immunization Adult Patients (1 - Risk 50-74 years 1-dose series) 07/30/2017 Zoster Vaccines (1 of 2) 07/30/2017 HIV Screening 04/01/2022 Social Influencers of Health Screening 04/01/2022 Pneumococcal Vaccine: 50+ Years (2 of 2 - PCV) 07/25/2022 07/25/2021 Depression Screening 04/23/2024 COVID-19 Vaccine (1 - 2024-2 6 season) 2024 Influenza Vaccine (#1) 2024 01/18/2024 Breast Cancer Screening 06/08/2025 06/08/2023 Cervical Cancer Screening: HPV 06/04/2028 06/04/2023 Cholesterol Screening (Lipid Panel) 01/17/2029 01/18/2024, 01/18/2024 Colorectal Cancer Screening: Colonoscopy 08/16/2030 08/16/2020 DTaP,Tdap,and Td Vaccines (3 - Td or Tdap) 02/20/2033 02/20/2023, 07/25/2021 Hepatitis C Screening Completed 07/25/2021 HIB Vaccines [...] Procedure Name Priority Date/Time Associated Diagnosis Comments ECG ANNOTATED 03/20/2025 ECG 12-LEAD STAT 03/18/2025 2:17 PM EST HCG, SERUM, QUALITATIVE STAT Add-on 03/18/2025 2:13 PM EST CBC WITH AUTO DIFFERENTIAL STAT 03/18/2025 2:13 PM EST TROPONIN I HIGH SENSITIVITY STAT 03/18/2025 2:13 PM EST CBC AND DIFFERENTIAL STAT 03/18/2025 2:13 PM EST COMPREHENSIVE METABOLIC PANEL STAT 03/18/2025 2:13 PM EST LIPID PANEL Routine 01/18/2024 DIAGNOSTIC MAMMOGRAPHY INCLUDING CAD BILATERAL Routine 06/08/2023 9:26 AM EST Mastodynia HM HPV Routine 06/04/2023 HEPATITIS C SCREENING Routine 07/25/2021 HM COLONOSCOPY Routine 08/16/2020 from Last 3 Months or Most Recently Relevant to Health Maintenance Results * ECG-Annotated (03/20/2025) us Provider Onbase MD ECG ORDERABLES Final Result * ECG 12 lead (03/18/2025 2:17 PM EST) Ventricular Rate ECG 55 BPM GEMUSE Atrial Rate 55 BPM GEMUSE P-R Interval 150 ms GEMUSE QRS Duration 74 ms GEMUSE Q-T Interval 418 ms GEMUSE QTc 399 ms GEMUSE P Wave [place] 30 degrees GEMUSE R [place] 13 degrees GEMUSE T [place] 34 degrees GEMUSE ECG Interpretation Sinus bradycardia When compared with ECG of 02-AUG-2022 11:09, No significant change was found Confirmed by RANDA WRIGHT ([id number]) on 03/20/2025 12:09:10 AM GEMUSE 03/18/2025 2:17 PM EST 03/20/2025 12:09 AM EST Rosalinda OSULLIVAN ECG ORDERABLES Final Result GEMUSE * Troponin I high sensitivity (03/18/2025 2:13 PM EST) [facility] High Sensitivity Troponin I 3 <=34 ng/L 03/18/2025 3:10 PM EST [facility] Blood Venous blood specimen / Unknown Venipuncture / Unknown 03/18/2025 2:13 PM EST 03/18/2025 2:31 PM EST Rosalinda OSULLIVAN LAB BLOOD ORDERABLES Final R esult Performing Organization Address City/[facility]/ZIP Co de Phone Number [facility] [address] [place] [address], [place] [phone] * CBC auto differential (03/18/2025 2:13 PM EST) [facility] WBC 9.0 4.8 - 10.8 K/mcL LAB HEMETOLOGY METHOD 03/18/2025 2:38 PM [facility] RBC 4.80 3.80 - 4.80 M/mcL LAB HEMETOLOGY METHOD 03/18/2025 2:38 PM [facility] Hemoglobin 13.1 11.5 - 16.0 g/dL LAB HEMETOLOGY METHOD 03/18/2025 2:38 PM [facility] Hematocrit 40.8 35.0 - 47.0 % LAB HEMETOLOGY METHOD 03/18/2025 2:38 PM [facility] MCV 84.3 79.0 - 98.0 FL LAB HEMETOLOGY METHOD 03/18/2025 2:38 PM [facility] MCH 27.1 27.0 - 32.0 pcg LAB HEMETOLOGY METHOD 03/18/2025 2:38 PM [facility] MCHC 32.1 32.0 - 37.0 g/dL LAB HEMETOLOGY METHOD 03/18/2025 2:38 PM [facility] RDW 13.9 11.0 - 15.0 % LAB HEMETOLOGY METHOD 03/18/2025 2:38 PM [facility] Platelets 335 130 - 400 K/mcL LAB HEMETOLOGY METHOD 03/18/2025 2:38 PM [facility] MPV 9.2 7.0 - 11.0 FL LAB HEMETOLOGY METHOD 03/18/2025 2:38 PM [facility] NRBC 0.0 <1.0 % LAB HEMETOLOGY METHOD 03/18/2025 2:38 PM [facility] NRBC Absolute 0.00 <0.10 K/mcL LAB HEMETOLOGY METHOD 03/18/2025 2:38 PM [facility] Neutrophils Relative 54.2 % LAB HEMETOLOGY METHOD 03/18/2025 2:38 PM [facility] Lymphocytes Relative 37.4 % LAB HEMETOLOGY METHOD 03/18/2025 2:38 PM [facility] Monocytes Relative 6.5 % LAB HEMETOLOGY METHOD 03/18/2025 2:38 PM [facility] Eosinophils Relative 1.2 % LAB HEMETOLOGY METHOD 03/18/2025 2:38 PM [facility] Basophils Relative 0.4 % LAB HEMETOLOGY METHOD 03/18/2025 2:38 PM [facility] Immature Granulocytes Relative 0.3 % LAB HEMETOLOGY METHOD 03/18/2025 2:38 PM [facility] Neutrophils Absolute 4.89 1.50 - 7.00 K/mcL LAB HEMETOLOGY METHOD 03/18/2025 2:38 PM EST [facility] Lymphocytes Absolute 3.38 1.00 - 5.00 K/mcL LAB HEMETOLOGY METHOD 03/18/2025 2:38 PM EST [facility] Monocytes Absolute 0.59 0.20 - 1.00 K/mcL LAB HEMETOLOGY METHOD 03/18/2025 2:38 PM EST [facility] Eosinophils Absolute 0.11 0.00 - 0.50 K/mcL LAB HEMETOLOGY METHOD 03/18/2025 2:38 PM EST [facility] Basophils Absolute 0.04 0.00 - 0.20 K/mcL LAB HEMETOLOGY METHOD 03/18/2025 2:[address] [facility] Immature Granulocytes Absolute 0.03 0.00 - 0.03 K/mcL LAB HEMETOLOGY METHOD 03/18/2025 2:38 PM EST [facility] Blood Venous blood specimen / Unknown Venipuncture / Unknown 03/18/2025 2:13 PM EST 03/18/2025 2:31 PM EST Rosalinda OSULLIVAN LAB BLOOD ORDERABLES Final R esult [facility] [address] [place] [address], [place] [phone] * hCG, serum, qualitative (03/18/2025 2:13 PM EST) hCG Qual Negative Negative 03/18/2025 4:00 PM EST [facility] Blood Venous blood specimen / Unknown Venipuncture / Unknown 03/18/2025 2:13 PM EST 03/18/2025 2:31 PM EST Rosalinda OSULLIVAN LAB BLOOD ORDERABLES Final R esult [facility] [address] [place] [address], * Comprehensive metabolic panel (03/18/2025 2:13 PM EST) Sodium 138 133 - 145 mmol/L 03/18/2025 3:16 PM [facility] Potassium 4.3 3.5 - 5.5 mmol/L 03/18/2025 3:16 PM [facility] Chloride 99 96 - 110 mmol/L 03/18/2025 3:16 PM [facility] CO2 29 21 - 32 mmol/L 03/18/2025 3:16 PM [facility] Anion Gap 10 3 - 11 03/18/2025 3:16 PM [facility] Glucose 90 70 - 100 mg/dL 03/18/2025 3:16 PM [facility] BUN 18 5 - 25 mg/dL 03/18/2025 3:16 PM [facility] Creatinine 0.85 0.50 - 1.10 mg/dL 03/18/2025 3:16 PM [facility] eGFR 80 >=60 mL/min/1. 73m2 03/18/2025 3:16 PM [facility] Comment:Calculation based on the Chronic Kidney Disease Epidemiology Collaboration (CKD-EPI) equation refit without adjustment for race. BUN/Creatinine Ratio 21.2 03/18/2025 3:16 PM [facility] Calcium 8.7 8.5 - 10.5 mg/dL 03/18/2025 3:16 PM [facility] AST (SGOT) 26 10 - 42 unit/L 03/18/2025 3:16 PM [facility] ALT (SGPT) 18 10 - 60 unit/L 03/18/2025 3:16 PM [facility] Alkaline Phosphatase 98 42 - 121 unit/L 03/18/2025 3:16 PM EST [facility] Total Protein 7.5 6.0 - 8.0 g/dL 03/18/2025 3:16 PM EST [facility] Albumin 4.1 3.2 - 5.0 g/dL 03/18/2025 3:16 PM EST [facility] Total Bilirubin 0.4 0.0 - 1.4 mg/dL 03/18/2025 3:16 PM EST [facility] Blood Venous blood specimen / Unknown Venipuncture / Unknown 03/18/2025 2:13 PM EST 03/18/2025 2:31 PM EST Rosalinda OSULLIVAN LAB BLOOD ORDERABLES Final R esult [facility] [address] [place] [address], * Lipid panel (01/18/2024) LDL/HDL Ratio 3 Triglycerides 86 mg/dL Cholesterol 236 mg/dL HDL 93 mg/dL LDL Cholesterol 126 mg/dL Blood Venous blood specimen / Unknown [facility] Provider MD LAB BLOOD ORDERABLES Annia l [...] field digital diagnostic tomosynthesis mammography, reviewed with CADand compared to previous. The breast tissue is heterogeneously dense,limiting sensitivity. No suspicious mass, architectural distortion orsuspicious calcifications are identified. IMPRESSION: : Dense breast tissue, limiting the sensitivity of mammography. Nomammographic evidence of malignancy. BIRADS 1-Negative; N. 5 year breast cancer risk assessment N/A Lifetime breast cancer risk assessment N/A Breast cancer risk category Breast cancer risk not assessed Result [facility] Alisson Stafford CNM IMG BI PROCEDURES Final Res ult * Cervical Cancer Screening: HPV (06/04/2023) [facility] Cervical Cancer Screening: HPV abstracted, negative Result [facility] Provider HEALTH MAINTENANCE Final Result * Hepatitis C Screening (07/25/2021) [facility] Hepatitis C Screening negative [facility] Provider HEALTH MAINTENANCE Final Result * Colonoscopy (08/16/2020) [facility] Colonoscopy completed Anatomical Region Laterality Modality Other Historical Provider HEALTH MAINTENANCE Final Result from Last 3 Months or Most Recently Relevant to Health Maintenance Insurance * Guarantor: Caron Brady Account Type Relation to Patient Date of Phone Billing Address Personal/Family Self 1965 [phone] (Work) [address] [place] [address] [facility] [employer] Care Teams Taximeter Repairer Relationship Specialty Start Date End Date Manny Doty MD [address] [place] [address] PCP - General Internal Medicine 05/04/21
--- OUTSIDE RECORDS SUMMARY | 2025-04-21 15:15 | XMS_ITS | Encounter Summary ---
Author Organization [facility] Address [address] [place] [address] [place] [address] Phone Care Team Providers Care Wharf Attendant Name Role Phone Rajat Conley MD Primary Care Provider [phone] Manny Doty MD Primary Care Provider [phone] Encounter Details Date Type Department Care Team (Late st Contact Info) Description 09/03/2017 Procedure [facility] [address] [place] [address] Social History Tobacco Use Types Packs/Day Years [...] on filedocumented in this encounter Care Teams Wharf Attendant Relationship Specialty Start Date End Date Rajat Conley MD [address] [facility] [address] [place] [address] PCP - General Gastroenterology 07/23/17 09/02/24 Manny Doty MD [address] [place] [address] PCP - General Internal Medicine 09/03/24 documented as of this encounter Additional Source Comments The information contained in this document represents components of the legal health record. It is not the complete legal health record.[facility]
--- OUTSIDE RECORDS SUMMARY | 2025-04-21 15:15 | XMS_ITS | Encounter Summary ---
Author Organization [facility] Address [address] [place] [address] [address] [place] [address] Phone Care Team Providers Care Industrial Hire Sales Assistant Name Role Phone Rajat Conley MD Primary Care Provider [phone] Manny Doty MD Primary Care Provider Reason for Referral * Consultation (Within 2 weeks) - Closed Specialty Diagnoses / Procedures Referred By Contac t Referred To Contact Pulmonary Disease Diagnoses SOB (shortness of breath) on exertion Sophie Daniel PA Phone: tel: fax: Referral ID Status Reason Start Date Expiration Date Visits Re quested Visits Authorized [id number] Closed 07/25/2017 07/25/2018 6 6 Encounter Details Date Type Department Care Team (Late st Contact Info) Description 07/25/2017 Transcribe Orders [facility] [address] [facility], [address] Floor, [address] [place] [address] Sophie Daniel PA [address] [place] [address] SOB (shortness of breath) on exertion (Primary [...] Associated Diagnoses Order Schedule Ambulatory referral to [facility] Outpatient Referral Routine SOB (shortness of breath) on exertion Ordered: 07/25/2017 documented as of this encounter Visit Diagnoses Diagnosis SOB (shortness of breath) on exertion- Primary Shortness of breath documented in this encounter Care Teams Industrial Hire Sales Assistant Relationship Specialty Start Date End Date Rajat Conley MD [address] [address] PCP - General Gastroenterology 07/23/17 09/02/24 Manny Doty MD [address] [place] [address] PCP - General Internal Medicine 09/03/24 documented as of this encounter Additional Source Comments The information contained in this document represents components of the legal health record. It is not the complete legal health record.[facility]
--- OUTSIDE RECORDS SUMMARY | 2025-04-21 15:15 | XMS_ITS | Clinical Summary ---
Author Organization [facility] Address [address] [place] [address] Care Team Providers Care Screw Cutter Name Role Phone Ref, Hasnopcp Primary Care Provider Unavailabl e Allergies No known active allergies Medications Vitamin [...] Social Drivers of Health Annual Screening 04/23/2024 Influenza Vaccine (#1) 2024 COVID-19 Vaccine (2024- season) 2024 DTaP,Tdap,and Td Vaccines (3 - Td or Tdap) 02/20/2033 02/20/2023, 07/25/2021 Care Teams Screw Cutter Relationship Specialty Start Date End Date Ref, Ceasar DO NOT EDIT THIS RECORD VIA PROVIDER ON THE FLY PCP - General Bilingual Case Manager 05/15/23
--- OUTSIDE RECORDS SUMMARY | 2025-04-21 15:15 | XMS_ITS | Encounter Summary ---
Author Organization [facility] Address [address] [place] [address] [place] [address] Phone Care Team Providers Care Ceramic Capacitor Processor Name Role Phone Rajat Conley MD Primary Care Provider [phone] Manny Doty MD Primary Care Provider Encounter Details Date Type Department Care Team (Late st Contact Info) Description 09/03/2017 Procedure [facility] [address] [place] [address] Social History Tobacco Use Types Packs/Day Years [...] on filedocumented in this encounter Care Teams Ceramic Capacitor Processor Relationship Specialty Start Date End Date Rajat Conley MD 175 [facility] [address] [place] [address] PCP - General Gastroenterology 07/23/17 09/02/24 Manny Doty MD [address] [place] [address] PCP - General Internal Medicine 09/03/24 documented as of this encounter Additional Source Comments The information contained in this document represents components of the legal health record. It is not the complete legal health record.[facility]
== END 2025-04-21 11:59 | disposition home or self-care (01) ==
PROVIDERS: Emergency Provider Emergency Medicine
DX: Z04.1 Encounter for examination and observation following transport accident (principal); G44.309 Post-traumatic headache, unspecified, not intractable; F07.81 Postconcussional syndrome
CPT/HCPCS: 70450; 72125; 96372; 99284; J1885

== ENCOUNTER → 2025-04-21 09:27 | Outpatient (BNV) | payer OTHER, SELFPAY | PROVIDERS: Emergency Provider Emergency Medicine; Visit Provider Radiology Diagnostic Radiology | DX: M50.322 Other cervical disc degeneration at C5-C6 level (principal); R51.9 Headache, unspecified | CPT/HCPCS: 70450; 72125 ==